=== PATIENT | female | born 1985 | race Caucasian/White ===

== ENCOUNTER 2017-10-31 06:40 | Emergency (ER) | payer SELFPAY ==
[~2017-10-31] VITALS: Ht 160 cm; Wt 59.0 kg
[~2017-10-31 06:40] MED LIST: AMOX250 PO; ANTIANXIETY MED; ATEN25; ATEN25 PO; Advil200 M1 PO; Atenolol25 MG PO; Augmentin 875-1 EACH PO; BCP; BENADRYL25 MG PO; BIRTH CONTROL; BIRTH CONTROL PO; Bactrim Ds Tab1 EACH PO; Bactroban22 GM TOP; CIPR500 PO; CODGUAEL PO; CYCL10 PO; DULO30 PO; DULOXETINE HCL60 MG PO; FOLI1 PO; GABA300 PO; HYDACE5 PO; IBUP600 PO; LORA2 PO; Micro-K10 MEQ; NAPR500 PO; Naprosyn375 MG PO; Neurontin 100100 MG PO; Neurontin 300300 MG PO; Norco 5-325 Ta1 EACH PO; PROACE100 PO; PROM25 PO; PROP40; Percocet 5-3251 EACH PO; QUET300; RANI150 PO; RXCYCL10 PO; RXHYDACE PO; RXOXYACE PO; RXPROM25 PO; RXTRAM50 PO; SERT100; SERT50 PO; SYMBALTA; TRAM50 PO; Ultram50 MG PO; VARE1 PO
== END 2017-10-31 09:45 | disposition home or self-care (01) ==
LOC: ER 06:40
DX: T74.21XA Adult sexual abuse, confirmed, initial encounter (principal); Z88.1 Allergy status to other antibiotic agents; Z88.8 Allergy status to other drugs, medicaments and biological substances; Z79.899 Other long term (current) drug therapy; F17.200 Nicotine dependence, unspecified, uncomplicated
CPT/HCPCS: J0696

== ENCOUNTER 2018-07-23 23:51 | Emergency (ER) | payer SELFPAY ==
[~2018-07-23] VITALS: Ht 160 cm; Wt 56.7 kg
[~2018-07-23 23:51] MED LIST changes: +Cyclobenzaprine5 MG PO
[2018-07-24] MEDS ORDERED: Bactrim Ds Tab1 EACH PO (01:37)
== END 2018-07-24 01:54 | disposition home or self-care (01) ==
LOC: ER 23:51
DX: L01.00 Impetigo, unspecified (principal); L03.011 Cellulitis of right finger; Z88.1 Allergy status to other antibiotic agents; Z88.8 Allergy status to other drugs, medicaments and biological substances; Z79.899 Other long term (current) drug therapy; F17.200 Nicotine dependence, unspecified, uncomplicated
CPT/HCPCS: 99283

== ENCOUNTER 2018-11-29 04:43 | Emergency (ER) | payer OTHER ==
[~2018-11-29] VITALS: Ht 160 cm; Wt 68.0 kg
[2018-11-29 05:29] LABS: BASOPHILS ABSOLUTE AUTO 0.03 K/mm3 (0.00-0.23); BASOPHILS PERCENT AUTO 0 % (0-2); EOSINOPHILS ABSOLUTE AUTO 0.06 K/mm3 (0.00-0.68); EOSINOPHILS PERCENT AUTO 1 % (0-6); Hematocrit 33.4 % (33.0-51.0); Hemoglobin 11.1 g/dL (11.5-16.0); IMMATURE GRAN ABSOLUTE AUTO 0.05 K/mm3 (0.00-0.10); IMMATURE GRAN PERCENT AUTO 1 % (0-1); LYMPHOCYTES ABSOLUTE AUTO 2.24 K/mm3 (0.84-5.20); LYMPHOCYTES PERCENT AUTO 30 % (21-46); MONOCYTES ABSOLUTE AUTO 0.46 K/mm3 (0.16-1.47); MONOCYTES PERCENT AUTO 6 % (4-13); Mean Corpuscular HGB 30.5 pg (26.0-34.0); Mean Corpuscular HGB Conc 33.2 g/dL (31.5-36.5); Mean Corpuscular Volume 92 fL (80-100); Mean Platelet Volume 9.6 fL (9.1-12.4); NEUTROPHILS ABSOLUTE AUTO 4.67 K/mm3 (1.96-9.15); NEUTROPHILS PERCENT AUTO 62 % (41-73); Platelet Count 321 K/mm3 (150-400); RDW Standard Deviation 43.5 fL (35.1-46.3); Red Blood Cell Count 3.64 M/mm3 (3.80-5.20); White Blood Cell Count 7.51 K/mm3 (4.00-11.30)
[2018-11-29] MEDS ORDERED: Verotin-Gr Cap1 EACH PO (05:35)
[2018-11-29 05:51] LABS: Alanine Aminotransfer (ALT/SGP 17 U/L (12-78); Albumin, Blood 2.8 g/dL (3.4-5.0); Albumin/Globulin Ratio 0.7 (0.8-1.8); Alk Phos 76 U/L (50-136); Anion Gap 5 mmol/L (6-16); Aspartate Aminotrans (AST/SGOT 8 U/L (12-37); Bilirubin, Total 0.2 mg/dL (0.1-1.0); Blood Urea Nitrogen 10 mg/dL (8-24); Bun/Creatinine Ratio 18.9 (12.0-20.0); CO2, Blood 26 mmol/L (21-32); Calcium, Blood 8.4 mg/dL (8.5-10.1); Chloride, Blood 109 mmol/L (98-108); Creatinine, Blood 0.53 mg/dL (0.40-1.00); Globulin, Blood 3.8 g/dL (2.2-4.0); Glomerular Filtration Rate >60 (60-); Glucose, Blood 87 mg/dL (70-99); Potassium, Blood 3.3 mmol/L (3.5-5.5); Sodium, Blood 140 mmol/L (136-145); Total Protein, Blood 6.6 g/dL (6.4-8.2)
[2018-11-29 06:16] LABS: Source, Urine Clean Catch
[2018-11-29 06:18] LABS: Bilirubin, Urine Neg (Neg); Blood, Urine Neg (Neg); Glucose Qualitative, Urine Neg (Neg); Ketones, Urine Neg (Neg); Leukocyte Esterase, Urine Neg (Neg); Nitrite, Urine Neg (Neg); Protein, Urine Neg (Neg); Specific Gravity, Urine 1.025 (1.003-1.022); Urobilinogen, Urine NORM (Normal)
[2018-11-29 06:19] LABS: Appearance, Urine Clear (Clear); Color, Urine Yellow (P-Yellow)
== END 2018-11-29 08:23 | disposition home or self-care (01) ==
LOC: ER 04:43
PROVIDERS: Emergency Medicine
DX: O26.892 Other specified pregnancy related conditions, second trimester (principal); R10.30 Lower abdominal pain, unspecified; R10.813 Right lower quadrant abdominal tenderness; O99.332 Smoking (tobacco) complicating pregnancy, second trimester; F17.210 Nicotine dependence, cigarettes, uncomplicated; Z3A.22 22 weeks gestation of pregnancy; Z88.1 Allergy status to other antibiotic agents
CPT/HCPCS: 36415; 76815; 76857; 80053; 81003; 85025; 96360; 99284-25; J7030

== ENCOUNTER → 2019-03-18 | Outpatient (CLI) | payer OTHER ==
[~2019-03-18] MED LIST changes: +Percocet 5-3251 EACH; +Verotin-Gr Cap1 EACH PO
== END | disposition home or self-care (01) ==
LOC: LAB EV 17:30 → LAB SHORT 17:30
DX: L02.31 Cutaneous abscess of buttock (principal)
CPT/HCPCS: 87070; 87075; 87077; 87147; 87186; 87205

== ENCOUNTER 2019-03-29 15:00 | Emergency (ER) | payer OTHER ==
[~2019-03-29 15:00] MED LIST changes: -Percocet 5-3251 EACH
== END 2019-03-29 15:30 | disposition left against medical advice (07) ==
LOC: ER 15:00
DX: Z53.21 Procedure and treatment not carried out due to patient leaving prior to being seen by health care provider (principal)

== ENCOUNTER 2019-03-29 15:38 | Inpatient (IN) | payer OTHER ==
[~2019-03-29] VITALS: Ht 160 cm; Wt 77.3 kg
[2019-03-29 16:52] LABS: BASOPHILS ABSOLUTE AUTO 0.03 K/mm3 (0.00-0.23); BASOPHILS PERCENT AUTO 0 % (0-2); EOSINOPHILS ABSOLUTE AUTO 0.04 K/mm3 (0.00-0.68); EOSINOPHILS PERCENT AUTO 1 % (0-6); Hematocrit 30.9 % (33.0-51.0); Hemoglobin 9.6 g/dL (11.5-16.0); IMMATURE GRAN ABSOLUTE AUTO 0.04 K/mm3 (0.00-0.10); IMMATURE GRAN PERCENT AUTO 1 % (0-1); LYMPHOCYTES ABSOLUTE AUTO 1.92 K/mm3 (0.84-5.20); LYMPHOCYTES PERCENT AUTO 26 % (21-46); MONOCYTES ABSOLUTE AUTO 0.51 K/mm3 (0.16-1.47); MONOCYTES PERCENT AUTO 7 % (4-13); Mean Corpuscular HGB 28.3 pg (26.0-34.0); Mean Corpuscular HGB Conc 31.1 g/dL (31.5-36.5); Mean Corpuscular Volume 91 fL (80-100); Mean Platelet Volume 10.2 fL (9.1-12.4); NEUTROPHILS ABSOLUTE AUTO 4.82 K/mm3 (1.96-9.15); NEUTROPHILS PERCENT AUTO 66 % (41-73); Platelet Count 351 K/mm3 (150-400); RDW Coefficient Variation 12.8 % (11.7-14.2); RDW Standard Deviation 42.3 fL (35.1-46.3); Red Blood Cell Count 3.39 M/mm3 (3.80-5.20); White Blood Cell Count 7.36 K/mm3 (4.00-11.30)
[2019-03-29 17:11] LABS: Alanine Aminotransfer (ALT/SGP 14 U/L (12-78); Albumin, Blood 2.3 g/dL (3.4-5.0); Albumin/Globulin Ratio 0.6 (0.8-1.8); Alk Phos 190 U/L (50-136); Anion Gap 5 mmol/L (6-16); Aspartate Aminotrans (AST/SGOT 13 U/L (12-37); Bilirubin, Total 0.2 mg/dL (0.1-1.0); Blood Urea Nitrogen 10 mg/dL (8-24); CO2, Blood 26 mmol/L (21-32); Calcium, Blood 8.7 mg/dL (8.5-10.1); Chloride, Blood 106 mmol/L (98-108); Creatinine, Blood 0.56 mg/dL (0.40-1.00); Globulin, Blood 4.1 g/dL (2.2-4.0); Glomerular Filtration Rate >60 (60-); Glucose, Blood 96 mg/dL (70-99); Potassium, Blood 3.4 mmol/L (3.5-5.5); Sodium, Blood 137 mmol/L (136-145); Total Protein, Blood 6.4 g/dL (6.4-8.2)
--- NOTE | 2019-03-30 00:39 | NUR ---
0020 pt returns from being outside, with food from vendor. informed pt she could not eat. She states she is going to eat since she is used to eating every 2 hours and waiting 6 or more hours she could not do.
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
--- NOTE | 2019-03-30 08:35 | NUR ---
talked to dr shanks at 08, telephone order for BPP stat, pt is wanting to eat and it is hard to keep food away. her mom is at the bedside and dr shanks was updated on that. dr shanks reports depending on BPP will decide the decision on if pt may eat or not.
--- NOTE | 2019-03-30 10:54 | NUR ---
PT IS WITHDRAWN, DOESNT WANT A C/S, BUT WANTS WHAT IS BEST FOR BABY AND WILLING TO HAVE ONE, WAS CRYING AND TEARUL AFTER FINDING OUT HAVING TO HAVE C/S. NOW PT IS WITHDRAWN AND TEARFUL. LEGAL GUARDIAN IS AT BEDSIDE, UNSURE HOW HAS GUARDIAN SHIP OF BABY WHEN BABY IS BABY IS BORN. PT ISNT ABLE TO BE A LEGAL GUARDIAN TO HERSELF, NOT SURE IF HER LEGAL GUARDIAN WILL HAVE DECISION MAKING OVER BABY OR IF PT IS ABLE TO HAVE LEGAL DECISION OVER BABY, NURSE KILN DOOR REPAIRER IS LOOKING INTO THIS PROBLEM. THERE IS A CPS LETTER IN CHART AND THE PAPER WORK ON LEGAL GUARDIANSHIP IS IN CHART, THE LEGAL GUARDIAN HAS CO SIGNED ALL CONSENTS FOR MOM.
[2019-03-30 12:38] LABS: PCO2 Cord - Arterial 62.6 mmHg (40-50); pH Cord - Arterial 7.26 (7.28-7.35)
[2019-03-30 12:39] LABS: PCO2 Cord - Venous 47.3 mmHg (40-50); PO2 Cord - Venous 20.2 mmHg (28-32); pH Umbilical Cord - Venous 7.36 (7.26-7.35)
--- NOTE | 2019-03-30 12:39 | NUR ---
03/30/19 1239 Merry Cordoba VIABLE FEMALE BORN VIA AT 1221, 9/9, WEIGHT [id number], 6# 3 OZ. CORD GASSES SENT WITH EDGARDO JOAQUIN. CORD BLOOD GIVEN TO ACC, CORD SEGMENT COLLECTED AND GIVEN TO AVIONICS MANAGERLUISA RN. PT TO PACU, MYSELF TO DO RECOVERY.
--- NOTE | 2019-03-30 13:39 | NUR ---
DR SALAS AT BEDSIDE UPDATE ON NB, MEDICATED WITH FENTANYL 25MCG IVP,
--- NOTE | 2019-03-30 15:02 | NUR ---
PT COUGHING ALOT, DRESSING SATURATED, PRESSURE DRESSING APPLIED WITH LUIS CARLOS REYES. FF @U, SCANT BLEEDING.
--- NOTE | 2019-03-30 16:33 | NUR ---
REPORT TO AMYRN
--- NOTE | 2019-03-30 20:00 | NUR ---
PT UP TO WHEELCHAIR, TOLLERATED WELL. TO NURSERY TO VISIT NB. APPROPRIATE WITH NB, FEEDING AND HOLDING.
[2019-03-31 06:00] LABS: BASOPHILS ABSOLUTE AUTO 0.02 K/mm3 (0.00-0.23); BASOPHILS PERCENT AUTO 0 % (0-2); EOSINOPHILS ABSOLUTE AUTO 0.06 K/mm3 (0.00-0.68); EOSINOPHILS PERCENT AUTO 1 % (0-6); Hematocrit 28.6 % (33.0-51.0); Hemoglobin 9.1 g/dL (11.5-16.0); IMMATURE GRAN ABSOLUTE AUTO 0.04 K/mm3 (0.00-0.10); IMMATURE GRAN PERCENT AUTO 1 % (0-1); LYMPHOCYTES ABSOLUTE AUTO 1.64 K/mm3 (0.84-5.20); LYMPHOCYTES PERCENT AUTO 21 % (21-46); MONOCYTES ABSOLUTE AUTO 0.48 K/mm3 (0.16-1.47); MONOCYTES PERCENT AUTO 6 % (4-13); Mean Corpuscular HGB 28.6 pg (26.0-34.0); Mean Corpuscular HGB Conc 31.8 g/dL (31.5-36.5); Mean Corpuscular Volume 90 fL (80-100); Mean Platelet Volume 9.9 fL (9.1-12.4); NEUTROPHILS ABSOLUTE AUTO 5.53 K/mm3 (1.96-9.15); NEUTROPHILS PERCENT AUTO 71 % (41-73); Platelet Count 295 K/mm3 (150-400); RDW Coefficient Variation 12.8 % (11.7-14.2); RDW Standard Deviation 42.2 fL (35.1-46.3); Red Blood Cell Count 3.18 M/mm3 (3.80-5.20); White Blood Cell Count 7.77 K/mm3 (4.00-11.30)
--- NOTE | 2019-03-31 10:30 | NUR ---
PT TO NURSERY TO FEED NB
--- NOTE | 2019-03-31 14:53 | NUR ---
TO NURSERY TO SEE NB. PT CRYING ABOUT LOSING BABY. CALL TO [facility] TO SEE IF PT CAN COME BACK, PT REPORTS SHE HAS BEEN LIVING THERE. AWAITING RESPONSE. NIDHI, PT GUARDIAN, AND PT MOTHER AT HER SIDE. THEY STATE THEY WILL NOT TAKE HER HOME.
--- NOTE | 2019-03-31 18:02 | NUR ---
HIV TEST WAS NOT ORDERED WITH LABS ON ADMIT. PER DR PRECIADO ( NEEDED FOR BABY), HIV TEST WAS ORDERED. AFTER MUCH DISCUSSION, THE LAB STATED THAT THEY WILL DO A RAPID DRAW THIS ONE TIME AND DR CANNON IS OK TO LET BABY GO. IF RESULTS COME BACK POSITIVE, THEN BABY WILL NEED TO COME BACK FOR TX. ORDER WRITTEN ON PAPER ORDER FOR RAPID HIV PER THE LAB IT IS NOT IN THE COMPUTER OTHERWISE.
--- NOTE | 2019-03-31 18:05 | NUR ---
PT BP HAS BEEN RUNNING 130'S/90'S TO 140'S-100'S AFTER PT HAS GONE OUTSIDE TO SMOKE. DR PRECIADO WAS UPDATED.
--- NOTE | 2019-03-31 18:55 | NUR ---
REPORT TO ONCOMING SHIFT
--- NOTE | 2019-04-01 12:41 | NUR ---
PATIENT REQUESTS TO SLEEP
[2019-04-01] MEDS ORDERED: IBUP600 PO (14:21)
[2019-04-01] MEDS ORDERED: Percocet 5-3251 EACH (14:22)
== END 2019-04-01 16:15 | disposition home or self-care (01) | DRG 787 ==
LOC: BC 15:38 → OBS 15:38 → BC 15:39 → OBS 15:39 → EDSTATUS 16:15 → BC 18:08
PROVIDERS: Obstetrics & Gynecology; ADMIT Advanced Practice Midwife
PROC: 10D00Z1 Extraction of Products of Conception, Low, Open Approach (ICD-10-PCS; principal; 2019-03-30 11:30)
DX: O36.5930 Maternal care for other known or suspected poor fetal growth, third trimester, not applicable or unspecified (principal); O99.324 Drug use complicating childbirth; Z3A.34 34 weeks gestation of pregnancy; Z37.0 Single live birth; O34.211 Maternal care for low transverse scar from previous cesarean delivery; F19.90 Other psychoactive substance use, unspecified, uncomplicated; O75.89 Other specified complications of labor and delivery
CPT/HCPCS: 36415; 59025; 76805; 76819; 80053; 82803; 85025; 86317; 86592; 86703; 86762; 86850; 86900; 86901; 99214; G0378; J0690; J2370; J2590; J2765; J3010; J7120

== ENCOUNTER 2019-06-20 05:43 | Emergency (ER) | payer OTHER ==
[~2019-06-20] VITALS: Ht 160 cm; Wt 63.5 kg
[~2019-06-20 05:43] MED LIST changes: +Percocet 5-3251 EACH
[2019-06-20 06:35] LABS: BASOPHILS ABSOLUTE AUTO 0.01 K/mm3 (0.00-0.23); BASOPHILS PERCENT AUTO 0 % (0-2); EOSINOPHILS ABSOLUTE AUTO 0.03 K/mm3 (0.00-0.68); EOSINOPHILS PERCENT AUTO 1 % (0-6); Hematocrit 41.6 % (33.0-51.0); Hemoglobin 13.1 g/dL (11.5-16.0); IMMATURE GRAN ABSOLUTE AUTO 0.02 K/mm3 (0.00-0.10); IMMATURE GRAN PERCENT AUTO 0 % (0-1); LYMPHOCYTES PERCENT AUTO 7 % (21-46); MONOCYTES PERCENT AUTO 3 % (4-13); Mean Corpuscular HGB 27.1 pg (26.0-34.0); Mean Corpuscular HGB Conc 31.5 g/dL (31.5-36.5); Mean Corpuscular Volume 86 fL (80-100); Mean Platelet Volume 9.9 fL (9.1-12.4); NEUTROPHILS ABSOLUTE AUTO 5.53 K/mm3 (1.96-9.15); NEUTROPHILS PERCENT AUTO 89 % (41-73); Platelet Count 261 K/mm3 (150-400); RDW Coefficient Variation 13.2 % (11.7-14.2); RDW Standard Deviation 41.4 fL (35.1-46.3); Red Blood Cell Count 4.83 M/mm3 (3.80-5.20); White Blood Cell Count 6.19 K/mm3 (4.00-11.30)
[2019-06-20 06:47] LABS: Alanine Aminotransfer (ALT/SGP 29 U/L (12-78); Albumin, Blood 3.3 g/dL (3.4-5.0); Albumin/Globulin Ratio 0.9 (0.8-1.8); Alk Phos 115 U/L (50-136); Anion Gap 6 mmol/L (6-16); Aspartate Aminotrans (AST/SGOT 19 U/L (12-37); Bilirubin, Total 0.5 mg/dL (0.1-1.0); Blood Urea Nitrogen 18 mg/dL (8-24); Bun/Creatinine Ratio 35.4 (12.0-20.0); CO2, Blood 24 mmol/L (21-32); Calcium, Blood 8.5 mg/dL (8.5-10.1); Chloride, Blood 109 mmol/L (98-108); Creatinine, Blood 0.51 mg/dL (0.40-1.00); Globulin, Blood 3.8 g/dL (2.2-4.0); Glomerular Filtration Rate >60 (60-); Glucose, Blood 114 mg/dL (70-99); Potassium, Blood 3.9 mmol/L (3.5-5.5); Sodium, Blood 139 mmol/L (136-145); Total Protein, Blood 7.1 g/dL (6.4-8.2)
== END 2019-06-20 10:38 | disposition home or self-care (01) ==
LOC: ER 05:43
PROVIDERS: Emergency Medicine
DX: R10.9 Unspecified abdominal pain (principal); F17.210 Nicotine dependence, cigarettes, uncomplicated
CPT/HCPCS: 36415; 80053; 83690; 85025; 96361; 96374; 96375; 99284-25; C9113; J2405; J3010; J7120

== ENCOUNTER 2020-01-15 00:39 | Emergency (ER) | payer OTHER ==
[~2020-01-15] VITALS: Ht 160 cm; Wt 68.0 kg
[2020-01-15 00:57] LABS: BASOPHILS ABSOLUTE AUTO 0.03 K/mm3 (0.00-0.23); BASOPHILS PERCENT AUTO 0 % (0-2); EOSINOPHILS ABSOLUTE AUTO 0.05 K/mm3 (0.00-0.68); EOSINOPHILS PERCENT AUTO 1 % (0-6); Hematocrit 42.8 % (33.0-51.0); Hemoglobin 13.5 g/dL (11.5-16.0); IMMATURE GRAN ABSOLUTE AUTO 0.02 K/mm3 (0.00-0.10); IMMATURE GRAN PERCENT AUTO 0 % (0-1); LYMPHOCYTES PERCENT AUTO 27 % (21-46); MONOCYTES ABSOLUTE AUTO 0.62 K/mm3 (0.16-1.47); MONOCYTES PERCENT AUTO 8 % (4-13); Mean Corpuscular HGB 28.2 pg (26.0-34.0); Mean Corpuscular HGB Conc 31.5 g/dL (31.5-36.5); Mean Corpuscular Volume 90 fL (80-100); Mean Platelet Volume 9.8 fL (9.1-12.4); NEUTROPHILS PERCENT AUTO 64 % (41-73); Platelet Count 304 K/mm3 (150-400); RDW Coefficient Variation 12.5 % (11.7-14.2); RDW Standard Deviation 41.1 fL (35.1-46.3); Red Blood Cell Count 4.78 M/mm3 (3.80-5.20); White Blood Cell Count 8.12 K/mm3 (4.00-11.30)
[2020-01-15 01:18] LABS: Alanine Aminotransfer (ALT/SGP 18 U/L (12-78); Albumin, Blood 3.9 g/dL (3.4-5.0); Alk Phos 100 U/L (50-136); Anion Gap 6 mmol/L (6-16); Aspartate Aminotrans (AST/SGOT 17 U/L (12-37); Beta HCG, Quantitative, Serum <1 mIU/mL (0-3); Bilirubin, Total 0.4 mg/dL (0.1-1.0); Blood Urea Nitrogen 19 mg/dL (8-24); Bun/Creatinine Ratio 24.1 (12.0-20.0); CO2, Blood 24 mmol/L (21-32); Chloride, Blood 111 mmol/L (98-108); Creatinine, Blood 0.79 mg/dL (0.40-1.00); Ethanol (Alcohol), Blood, Med <3 mg/dL; Globulin, Blood 4.1 g/dL (2.2-4.0); Glomerular Filtration Rate >60 (60-); Glucose, Blood 102 mg/dL (70-99); Sodium, Blood 141 mmol/L (136-145)
[2020-01-15] MEDS ORDERED: OXYC5 PO (04:52)
== END 2020-01-15 05:34 | disposition home or self-care (01) ==
LOC: ER 00:39
PROVIDERS: Emergency Medicine
DX: S06.0X9A Concussion with loss of consciousness of unspecified duration, initial encounter (principal); S01.82XA Laceration with foreign body of other part of head, initial encounter; S29.012A Strain of muscle and tendon of back wall of thorax, initial encounter; S39.012A Strain of muscle, fascia and tendon of lower back, initial encounter; F17.210 Nicotine dependence, cigarettes, uncomplicated; Z88.1 Allergy status to other antibiotic agents; Z88.8 Allergy status to other drugs, medicaments and biological substances; V19.9XXA Pedal cyclist (driver) (passenger) injured in unspecified traffic accident, initial encounter
CPT/HCPCS: 12052; 70450; 72070; 72100; 72125; 72126; 80053; 84702; 85025; 96374-59; 96375-59; 99285-25; A9270; A9270-GY; G0480; J1170; J2405; J2550; J3010

== ENCOUNTER 2020-02-22 06:02 | Emergency (ER) | payer OTHER ==
[~2020-02-22] VITALS: Ht 160 cm; Wt 56.7 kg
[~2020-02-22 06:02] MED LIST changes: +OXYC5 PO
[2020-02-22 07:03] LABS: BASOPHILS ABSOLUTE AUTO 0.03 K/mm3 (0.00-0.23); BASOPHILS PERCENT AUTO 1 % (0-2); EOSINOPHILS ABSOLUTE AUTO 0.08 K/mm3 (0.00-0.68); EOSINOPHILS PERCENT AUTO 1 % (0-6); Hematocrit 42.2 % (33.0-51.0); Hemoglobin 13.6 g/dL (11.5-16.0); IMMATURE GRAN ABSOLUTE AUTO 0.01 K/mm3 (0.00-0.10); IMMATURE GRAN PERCENT AUTO 0 % (0-1); LYMPHOCYTES ABSOLUTE AUTO 2.15 K/mm3 (0.84-5.20); LYMPHOCYTES PERCENT AUTO 33 % (21-46); MONOCYTES ABSOLUTE AUTO 0.53 K/mm3 (0.16-1.47); MONOCYTES PERCENT AUTO 8 % (4-13); Mean Corpuscular HGB 29.4 pg (26.0-34.0); Mean Corpuscular HGB Conc 32.2 g/dL (31.5-36.5); Mean Corpuscular Volume 91 fL (80-100); Mean Platelet Volume 10.1 fL (9.1-12.4); NEUTROPHILS PERCENT AUTO 57 % (41-73); Platelet Count 308 K/mm3 (150-400); RDW Coefficient Variation 13.1 % (11.7-14.2); RDW Standard Deviation 43.7 fL (35.1-46.3); Red Blood Cell Count 4.63 M/mm3 (3.80-5.20)
[2020-02-22 07:22] LABS: Alanine Aminotransfer (ALT/SGP 24 U/L (12-78); Albumin, Blood 3.5 g/dL (3.4-5.0); Albumin/Globulin Ratio 0.8 (0.8-1.8); Alk Phos 106 U/L (50-136); Anion Gap 5 mmol/L (6-16); Aspartate Aminotrans (AST/SGOT 20 U/L (12-37); Bilirubin, Total 0.5 mg/dL (0.1-1.0); Blood Urea Nitrogen 19 mg/dL (8-24); Bun/Creatinine Ratio 25.1 (12.0-20.0); CO2, Blood 26 mmol/L (21-32); Calcium, Blood 8.7 mg/dL (8.5-10.1); Chloride, Blood 109 mmol/L (98-108); Creatinine, Blood 0.76 mg/dL (0.40-1.00); Globulin, Blood 4.2 g/dL (2.2-4.0); Glomerular Filtration Rate >60 (60-); Glucose, Blood 91 mg/dL (70-99); Potassium, Blood 3.8 mmol/L (3.5-5.5); Sodium, Blood 140 mmol/L (136-145); Total Protein, Blood 7.7 g/dL (6.4-8.2)
== END 2020-02-22 09:43 | disposition home or self-care (01) ==
LOC: ER 06:02
PROVIDERS: Emergency Medicine
DX: S09.90XA Unspecified injury of head, initial encounter (principal); F17.210 Nicotine dependence, cigarettes, uncomplicated; Z88.1 Allergy status to other antibiotic agents; Z88.6 Allergy status to analgesic agent; Z59.0 Homelessness; Y09 Assault by unspecified means
CPT/HCPCS: 36415; 70450; 70486; 80053; 84703; 85025; 99284-25

== ENCOUNTER → 2020-04-12 | Outpatient (CLI) | payer OTHER | END | disposition home or self-care (01) | LOC: LAB SHORT 17:25 | DX: N39.0 Urinary tract infection, site not specified (principal) | CPT/HCPCS: 87077; 87086; 87186 ==

== ENCOUNTER 2020-04-17 14:16 | Emergency (ER) | payer OTHER ==
[~2020-04-17] VITALS: Ht 160 cm; Wt 70.3 kg
[2020-04-17] MEDS ORDERED: Percocet 5-3251 EACH PO (15:57)
[2020-04-17] MEDS ORDERED: CRUTCH2 XX (16:51)
== END 2020-04-17 17:03 | disposition home or self-care (01) ==
LOC: ER 14:16
DX: S82.201A Unspecified fracture of shaft of right tibia, initial encounter for closed fracture (principal); J40 Bronchitis, not specified as acute or chronic; F17.210 Nicotine dependence, cigarettes, uncomplicated; Z88.1 Allergy status to other antibiotic agents; Z88.6 Allergy status to analgesic agent; W01.0XXA Fall on same level from slipping, tripping and stumbling without subsequent striking against object, initial encounter
CPT/HCPCS: 29515; 73590; 99283-25; A9270

== ENCOUNTER 2020-05-11 15:28 | Emergency (ER) | payer OTHER ==
[~2020-05-11] VITALS: Ht 160 cm; Wt 68.0 kg
[~2020-05-11 15:28] MED LIST changes: +CRUTCH2 XX
[2020-05-11] MEDS ORDERED: IBUP400 PO (17:09)
== END 2020-05-11 17:50 | disposition home or self-care (01) ==
LOC: ER 15:28
DX: M79.672 Pain in left foot (principal); F15.10 Other stimulant abuse, uncomplicated; F17.210 Nicotine dependence, cigarettes, uncomplicated; Z88.1 Allergy status to other antibiotic agents; Z88.6 Allergy status to analgesic agent
CPT/HCPCS: 73630; 99283-25; A9270

== ENCOUNTER 2022-05-12 05:20 | Emergency (ER) | payer OTHER ==
[~2022-05-12 05:20] MED LIST changes: +AMOCLA875 PO; +IBUP400 PO; +NARCAN4 M1
[2022-05-12] MEDS ORDERED: CEPH500 PO (06:44)
== END 2022-05-12 08:51 | disposition home or self-care (01) ==
DX: O99.891 Other specified diseases and conditions complicating pregnancy (principal); S60.822A Blister (nonthermal) of left wrist, initial encounter; O99.333 Smoking (tobacco) complicating pregnancy, third trimester; Z3A.00 Weeks of gestation of pregnancy not specified; Z88.1 Allergy status to other antibiotic agents; Z88.8 Allergy status to other drugs, medicaments and biological substances; Z87.820 Personal history of traumatic brain injury

== ENCOUNTER → 2022-05-18 | Outpatient (CLI) | payer OTHER ==
[~2022-05-18] MED LIST changes: +CEPH500 PO
== END | disposition home or self-care (01) ==
LOC: LAB SHORT 14:22 → LAB 14:22
DX: Z34.90 Encounter for supervision of normal pregnancy, unspecified, unspecified trimester (principal)
CPT/HCPCS: 87081; 87150

== ENCOUNTER 2022-06-02 16:36 | Inpatient (IN) | payer OTHER ==
[~2022-06-02] VITALS: Ht 154.9 cm; Wt 81.2 kg
[2022-06-02 17:20] LABS: BASOPHILS ABSOLUTE AUTO 0.02 K/mm3 (0.00-0.23); BASOPHILS PERCENT AUTO 0 % (0-2); EOSINOPHILS ABSOLUTE AUTO 0.03 K/mm3 (0.00-0.68); EOSINOPHILS PERCENT AUTO 0 % (0-6); Hematocrit 31.9 % (33.0-51.0); Hemoglobin 10.4 g/dL (11.5-16.0); IMMATURE GRAN ABSOLUTE AUTO 0.05 K/mm3 (0.00-0.10); IMMATURE GRAN PERCENT AUTO 1 % (0-1); LYMPHOCYTES ABSOLUTE AUTO 1.29 K/mm3 (0.84-5.20); LYMPHOCYTES PERCENT AUTO 14 % (21-46); MONOCYTES ABSOLUTE AUTO 0.37 K/mm3 (0.16-1.47); MONOCYTES PERCENT AUTO 4 % (4-13); Mean Corpuscular HGB 26.3 pg (26.0-34.0); Mean Corpuscular HGB Conc 32.6 g/dL (31.5-36.5); Mean Corpuscular Volume 81 fL (80-100); Mean Platelet Volume 10.4 fL (9.1-12.4); NEUTROPHILS PERCENT AUTO 81 % (41-73); Platelet Count 387 K/mm3 (150-400); RDW Coefficient Variation 12.7 % (11.7-14.2); RDW Standard Deviation 36.5 fL (35.1-46.3); Red Blood Cell Count 3.95 M/mm3 (3.80-5.20); White Blood Cell Count 9.16 K/mm3 (4.00-11.30)
[2022-06-02 18:09] LABS: U Amphetamine Screen DETECTED; U Barbituate Screen Not Detected; U Benzodiazapine Screen Not Detected; U Buprenorphine Screen Not Detected; U Cannabinoids Screen Not Detected; U Cocaine Screen Not Detected; U Methadone Screen Not Detected; U Methamphetamine Screen DETECTED; U Opiates Screen Not Detected; U Oxycodone Screen Not Detected; U Phencyclidine Screen Not Detected; U Propoxyphene Screen Not Detected
[2022-06-02 18:31] LABS: PCO2 Cord - Arterial 68.2 mmHg (40-50); PO2 Cord - Arterial < 16 mmHg (16-20); pH Cord - Arterial 7.18 (7.28-7.35)
[2022-06-02 18:34] LABS: PCO2 Cord - Venous 61 mmHg (40-50); PO2 Cord - Venous < 16 mmHg (28-32); pH Umbilical Cord - Venous 7.23 (7.26-7.35)
[2022-06-03 10:10] LABS: RPR Reactive (Nonreactive)
[2022-06-03 10:33] LABS: BASOPHILS ABSOLUTE AUTO 0.03 K/mm3 (0.00-0.23); BASOPHILS PERCENT AUTO 0 % (0-2); EOSINOPHILS ABSOLUTE AUTO 0.04 K/mm3 (0.00-0.68); EOSINOPHILS PERCENT AUTO 1 % (0-6); IMMATURE GRAN ABSOLUTE AUTO 0.05 K/mm3 (0.00-0.10); IMMATURE GRAN PERCENT AUTO 1 % (0-1); LYMPHOCYTES ABSOLUTE AUTO 1.39 K/mm3 (0.84-5.20); LYMPHOCYTES PERCENT AUTO 18 % (21-46); MONOCYTES ABSOLUTE AUTO 0.53 K/mm3 (0.16-1.47); MONOCYTES PERCENT AUTO 7 % (4-13); Mean Corpuscular HGB 26.5 pg (26.0-34.0); Mean Corpuscular HGB Conc 32.1 g/dL (31.5-36.5); Mean Corpuscular Volume 83 fL (80-100); Mean Platelet Volume 10.4 fL (9.1-12.4); NEUTROPHILS ABSOLUTE AUTO 5.62 K/mm3 (1.96-9.15); NEUTROPHILS PERCENT AUTO 73 % (41-73); Platelet Count 341 K/mm3 (150-400); Red Blood Cell Count 3.39 M/mm3 (3.80-5.20); White Blood Cell Count 7.66 K/mm3 (4.00-11.30)
[2022-06-03 10:57] LABS: Albumin, Blood 1.8 g/dL (3.4-5.0); Albumin/Globulin Ratio 0.4 (0.8-1.8); Bilirubin, Total 0.4 mg/dL (0.1-1.0); Bun/Creatinine Ratio 11.7 (12.0-20.0); Calcium, Blood 8.5 mg/dL (8.5-10.1); Creatinine, Blood 0.85 mg/dL (0.40-1.00); Globulin, Blood 4.6 g/dL (2.2-4.0); Potassium, Blood 4.3 mmol/L (3.5-5.5); Total Protein, Blood 6.4 g/dL (6.4-8.2)
--- NOTE | 2022-06-03 15:09 | NUR ---
1400 MOTHER UP TO NURSERY FOR THE FIRST TIME TODAY TO SEE BABY. ASSISTED WITH FEED AND THEN BACK TO ROOM.
--- NOTE | 2022-06-03 15:09 | NUR ---
DR BAI AT BEDSIDE TO DISCUSS TRANSFERING BABY TO [facility]. DISCUSSION WITH PATIENT ABOUT REACTIVE RPR. DR RUIZ WILL BE PUTTING IN ORDERS FOR TREATMENT. PT VERY TEARFUL AT THIS TIME.
--- NOTE | 2022-06-03 15:47 | NUR ---
MOTHER CRYING IN NURSERY HOLDING BABY AND SIGNING CONSENTS WITH DR BAI. DR RUIZ CALLED AND MEDICATION ORDER RECEIVED. MOTHER STATES SHE WILL STAY TONIGHT AND GET DISCHARGED TOMORROW. DR RUIZ AWARE.
--- NOTE | 2022-06-03 18:41 | NUR ---
MOTHER STATES SHE NOW WILL NOT STAY UNTIL MORNING AND NEEDS TO GO HOME TONIGHT TO TAKE CARE OF SOME THINGS. EXPLAINED THAT ALL PHARMACYS WILL BE CLOSED WHEN SHE LEAVES AND SHE WONT HAVE ANY OF HER MEDICATIONS TO TAKE. PT STATES SHE WILL JUST HAVE TO DEAL WITH IT BUT DOES HAVE TO LEAVE TONIGHT. CALL TO DR RUIZ. DISCUSSED TRYING TO GET THE PATIENT TO STAY [place]GT BUT IF SHE IS ADAMANT ABOUT LEAVING THEN CAN DC HOME. RX WILL BE CALLED TO PHARMACY BUT WONT BE READY UNTIL TOMORROW. DR RUIZ WANTS PT TO RETURN TO OFFICE NEXT WEEK FOR PEN G AND INCISION CHECK AND TO REMOVE NATASHA.
[2022-06-03] MEDS ORDERED: ACYC400 PO (19:18)
[2022-06-03] MEDS ORDERED: ACET500 PO (19:18)
[2022-06-03] MEDS ORDERED: IBUP800 PO (19:18)
[2022-06-03] MEDS ORDERED: DOXYCYCLINE HY100 M1 PO (19:19)
--- NOTE | 2022-06-03 20:00 | NUR ---
PT DC HOME. PT CALLED MOM TO PICK HER UP. REVIEWED DC INSTRUCTION WITH PT AND HIGHLITED AREA ABOUT CALLING TO SCHEDULE FOLLOW UP WITH PRIMARY OB FOR NEXT WEEK. PT ALSO SCHEDULED TO COME BACK TO CLINIC WEDNESDAY AT 8:30AM. WALKED PATIENT OFF UNIT.
[2022-06-04 06:09] LABS: HBSAG SCREEN Negative (Negative); HCV ANTIBODY 0.1 (0.0-0.9)
[2022-06-04 06:09] LABS: HIV AB/P24 AG SCREEN Non Reactive (Non Reactive)
== END 2022-06-03 19:42 | disposition home or self-care (01) | DRG 787 ==
LOC: BC 16:36 → OBS 16:36 → BC 17:11
PROVIDERS: Registered Nurse Community Health; ADMIT Family Medicine
PROC: 10D00Z1 Extraction of Products of Conception, Low, Open Approach (ICD-10-PCS; principal; 2022-06-02 19:00)
DX: O34.211 Maternal care for low transverse scar from previous cesarean delivery (principal); B00.89 Other herpesviral infection; O98.52 Other viral diseases complicating childbirth; O99.324 Drug use complicating childbirth; F15.20 Other stimulant dependence, uncomplicated; Z37.0 Single live birth; O99.334 Smoking (tobacco) complicating childbirth; F17.210 Nicotine dependence, cigarettes, uncomplicated; F12.10 Cannabis abuse, uncomplicated; Z59.00 Homelessness unspecified; Z87.820 Personal history of traumatic brain injury; Z88.8 Allergy status to other drugs, medicaments and biological substances; Z88.1 Allergy status to other antibiotic agents; Z79.2 Long term (current) use of antibiotics; Z79.899 Other long term (current) drug therapy; Z3A.39 39 weeks gestation of pregnancy
CPT/HCPCS: 36415; 80053; 82803; 85025; 85460; 86592; 86593; 86695; 86696; 86803; 86850; 86900; 86901; 87340; 87389; 87591; A9270; J0561; J0690; J1885; J2060; J2370; J2405; J2765; J3010; J7120

== ENCOUNTER → 2023-12-30 | Outpatient (CLI) | payer OTHER ==
[~2023-12-30] MED LIST changes: +ACET500 PO; +ACYC400 PO; +DOXYCYCLINE HY100 M1 PO; +IBUP800 PO; +ONDA4ODT MM; +UNKNOWN ABX
[2023-12-30 17:05] LABS: BASOPHILS ABSOLUTE AUTO 0.05 K/mm3 (0.00-0.23); BASOPHILS PERCENT AUTO 1 % (0-2); EOSINOPHILS ABSOLUTE AUTO 0.12 K/mm3 (0.00-0.68); EOSINOPHILS PERCENT AUTO 2 % (0-6); Hematocrit 37.4 % (33.0-51.0); Hemoglobin 12.2 g/dL (11.5-16.0); IMMATURE GRAN ABSOLUTE AUTO 0.02 K/mm3 (0.00-0.10); IMMATURE GRAN PERCENT AUTO 0 % (0-1); LYMPHOCYTES ABSOLUTE AUTO 2.82 K/mm3 (0.84-5.20); LYMPHOCYTES PERCENT AUTO 40 % (21-46); MONOCYTES ABSOLUTE AUTO 0.52 K/mm3 (0.16-1.47); MONOCYTES PERCENT AUTO 7 % (4-13); Mean Corpuscular HGB 28.2 pg (26.0-34.0); Mean Corpuscular HGB Conc 32.6 g/dL (31.5-36.5); Mean Corpuscular Volume 86 fL (80-100); Mean Platelet Volume 10.2 fL (9.1-12.4); NEUTROPHILS ABSOLUTE AUTO 3.47 K/mm3 (1.96-9.15); NEUTROPHILS PERCENT AUTO 50 % (41-73); Platelet Count 380 K/mm3 (150-400); RDW Coefficient Variation 12.9 % (11.7-14.2); RDW Standard Deviation 40.4 fL (35.1-46.3); Red Blood Cell Count 4.33 M/mm3 (3.80-5.20)
[2023-12-30 17:25] LABS: Albumin, Blood 3.5 g/dL (3.4-5.0); Albumin/Globulin Ratio 0.8 (0.8-1.8); Bilirubin, Total 0.2 mg/dL (0.1-1.0); Bun/Creatinine Ratio 17.3 (12.0-20.0); Calcium, Blood 9.3 mg/dL (8.5-10.1); Creatinine, Blood 1.04 mg/dL (0.40-1.00); Globulin, Blood 4.5 g/dL (2.2-4.0); Potassium, Blood 3.8 mmol/L (3.5-5.5); Thyroid Stimulating Hormone 1.919 uIU/mL (0.360-4.800)
== END ==
LOC: LAB 17:01 → LAB SHORT 17:01
PROVIDERS: Emergency Medicine
DX: N63.21 Unspecified lump in the left breast, upper outer quadrant (principal); N64.52 Nipple discharge
CPT/HCPCS: 80053; 84146; 84443; 85025

== ENCOUNTER 2024-01-01 18:04 | Emergency (ER) | payer OTHER ==
[~2024-01-01] VITALS: Ht 160 cm; Wt 70.3 kg
[~2024-01-01 18:04] MED LIST changes: -ONDA4ODT MM
[2024-01-01] MEDS ORDERED: Ondansetron HCl 2 MG / ML 2ML Vial IV ONE (18:55)
[2024-01-01] MEDS ORDERED: NS 1,000 ML IV SCH ×2 (18:55→23:20)
[2024-01-01 19:17] LABS: BASOPHILS ABSOLUTE AUTO 0.04 K/mm3 (0.00-0.23); BASOPHILS PERCENT AUTO 1 % (0-2); EOSINOPHILS ABSOLUTE AUTO 0.09 K/mm3 (0.00-0.68); EOSINOPHILS PERCENT AUTO 1 % (0-6); Hematocrit 38.4 % (33.0-51.0); IMMATURE GRAN ABSOLUTE AUTO 0.02 K/mm3 (0.00-0.10); IMMATURE GRAN PERCENT AUTO 0 % (0-1); LYMPHOCYTES ABSOLUTE AUTO 2.73 K/mm3 (0.84-5.20); LYMPHOCYTES PERCENT AUTO 36 % (21-46); MONOCYTES PERCENT AUTO 5 % (4-13); Mean Corpuscular HGB 28.4 pg (26.0-34.0); Mean Corpuscular HGB Conc 33.9 g/dL (31.5-36.5); Mean Corpuscular Volume 84 fL (80-100); Mean Platelet Volume 9.8 fL (9.1-12.4); NEUTROPHILS ABSOLUTE AUTO 4.21 K/mm3 (1.96-9.15); NEUTROPHILS PERCENT AUTO 56 % (41-73); Platelet Count 402 K/mm3 (150-400); RDW Coefficient Variation 12.8 % (11.7-14.2); RDW Standard Deviation 39.3 fL (35.1-46.3); Red Blood Cell Count 4.58 M/mm3 (3.80-5.20); White Blood Cell Count 7.49 K/mm3 (4.00-11.30)
[2024-01-01 19:36] LABS: Albumin, Blood 3.7 g/dL (3.4-5.0); Albumin/Globulin Ratio 0.8 (0.8-1.8); Bilirubin, Total 0.3 mg/dL (0.1-1.0); Bun/Creatinine Ratio 24.8 (12.0-20.0); Calcium, Blood 9.5 mg/dL (8.5-10.1); Creatinine, Blood 0.81 mg/dL (0.40-1.00); Globulin, Blood 4.6 g/dL (2.2-4.0); Potassium, Blood 3.7 mmol/L (3.5-5.5); Total Protein, Blood 8.3 g/dL (6.4-8.2)
[2024-01-01 19:40] LABS: Influenza A, PCR NEGATIVE (NEGATIVE); Influenza B, PCR NEGATIVE (NEGATIVE); Resp Syncytial Virus, PCR NEGATIVE (NEGATIVE); SARS-Cov-2 (COVID-19) PCR, MMC NEGATIVE (NEGATIVE)
[2024-01-01] MEDS ORDERED: Droperidol 5 mg/2 ml Vial IV ONE (23:20)
[2024-01-01] MEDS ORDERED: Ketorolac Tromethamine 15mg Vial IV ONE (23:20)
[2024-01-01 23:57] LABS: Source, Urine Clean Catch
[2024-01-02 00:04] LABS: Bilirubin, Urine Neg (Neg); Blood, Urine Neg (Neg); Glucose Qualitative, Urine Neg (Neg); Ketones, Urine Neg (Neg); Leukocyte Esterase, Urine Neg (Neg); Nitrite, Urine Neg (Neg); Protein, Urine Neg (Neg); Specific Gravity, Urine 1.015 (1.003-1.022); Urobilinogen, Urine NORM (Normal)
[2024-01-02 00:19] LABS: Appearance, Urine Hazy (Clear); Color, Urine Yellow (P-Yellow); U Amphetamine Screen DETECTED; U Barbituate Screen Not Detected; U Benzodiazapine Screen Not Detected; U Buprenorphine Screen Not Detected; U Cannabinoids Screen Not Detected; U Cocaine Screen Not Detected; U Methadone Screen Not Detected; U Methamphetamine Screen DETECTED; U Opiates Screen Not Detected; U Oxycodone Screen Not Detected; U Phencyclidine Screen Not Detected
[2024-01-02 00:20] LABS: Amorphous Heavy (0-Heavy); Bacteria Rare /hpf; Red Blood Cells, Urine Not Seen /hpf (0-2); Squamous Epithelial Cells Few /hpf (Few); White Blood Cells, Urine Not Seen /hpf (0-5)
[2024-01-02] MEDS ORDERED: ONDA4ODT MM (00:36)
[2024-01-02 01:30] VITALS: BP 126/74
== END 2024-01-02 01:53 | disposition home or self-care (01) ==
LOC: ER 18:04
PROVIDERS: Student in an Organized Health Care Education/Training Program
DX: R10.11 Right upper quadrant pain (principal); R10.30 Lower abdominal pain, unspecified; F15.929 Other stimulant use, unspecified with intoxication, unspecified; Z88.8 Allergy status to other drugs, medicaments and biological substances; Z88.1 Allergy status to other antibiotic agents; F17.210 Nicotine dependence, cigarettes, uncomplicated
CPT/HCPCS: 0241U; 76705; 80053; 81001; 81025; 83690; 85025; J1790; J1885; J7030

== ENCOUNTER 2024-01-12 18:29 | Emergency (ER) | payer OTHER ==
[~2024-01-12] VITALS: Ht 160 cm; Wt 72.6 kg
[~2024-01-12 18:29] MED LIST changes: +ONDA4ODT MM
[2024-01-12 18:37] VITALS: BP 123/85
[2024-01-12 19:32] LABS: Source, Urine Clean Catch
[2024-01-12 19:39] LABS: Appearance, Urine Hazy (Clear); Bilirubin, Urine Neg (Neg); Blood, Urine Neg (Neg); Color, Urine Yellow (P-Yellow); Glucose Qualitative, Urine Neg (Neg); Ketones, Urine Neg (Neg); Leukocyte Esterase, Urine 1+ (Neg); Nitrite, Urine Neg (Neg); Protein, Urine Neg (Neg); Specific Gravity, Urine 1.025 (1.003-1.022); Urobilinogen, Urine NORM (Normal)
[2024-01-12] MEDS ORDERED: Ketorolac Tromethamine 15mg Vial IV ONE (19:50)
[2024-01-12 19:52] LABS: Bacteria Many /hpf; Mucus Light (0-Heavy); Red Blood Cells, Urine 0-2 /hpf (0-2); Squamous Epithelial Cells Few /hpf (Few)
== END 2024-01-12 22:15 | disposition home or self-care (01) ==
LOC: ER 18:29
PROVIDERS: Physician Assistant
DX: N83.202 Unspecified ovarian cyst, left side (principal); K52.9 Noninfective gastroenteritis and colitis, unspecified; R10.814 Left lower quadrant abdominal tenderness; F17.210 Nicotine dependence, cigarettes, uncomplicated; Z88.8 Allergy status to other drugs, medicaments and biological substances; Z88.1 Allergy status to other antibiotic agents
CPT/HCPCS: 74177; 81001; 87086; 96374-59; 99284-25; J1885; Q9967

== ENCOUNTER 2024-01-29 23:49 | Inpatient (IN) | payer OTHER ==
[~2024-01-29] VITALS: Ht 160 cm; Wt 68.6 kg
[~2024-01-29 23:49] MED LIST changes: +HYDR1TAB94 PO
[2024-01-30] MEDS ORDERED: HYDROmorphone HCl/Pf 1MG SYR IV ONE (00:10)
[2024-01-30 00:40] LABS: BASOPHILS ABSOLUTE AUTO 0.06 K/mm3 (0.00-0.23); BASOPHILS PERCENT AUTO 1 % (0-2); EOSINOPHILS ABSOLUTE AUTO 0.05 K/mm3 (0.00-0.68); EOSINOPHILS PERCENT AUTO 1 % (0-6); IMMATURE GRAN ABSOLUTE AUTO 0.01 K/mm3 (0.00-0.10); IMMATURE GRAN PERCENT AUTO 0 % (0-1); LYMPHOCYTES ABSOLUTE AUTO 1.84 K/mm3 (0.84-5.20); LYMPHOCYTES PERCENT AUTO 26 % (21-46); MONOCYTES ABSOLUTE AUTO 0.57 K/mm3 (0.16-1.47); MONOCYTES PERCENT AUTO 8 % (4-13); Mean Corpuscular HGB 27.7 pg (26.0-34.0); Mean Corpuscular HGB Conc 32.4 g/dL (31.5-36.5); Mean Corpuscular Volume 86 fL (80-100); Mean Platelet Volume 9.7 fL (9.1-12.4); NEUTROPHILS ABSOLUTE AUTO 4.51 K/mm3 (1.96-9.15); NEUTROPHILS PERCENT AUTO 64 % (41-73); Platelet Count 408 K/mm3 (150-400); RDW Coefficient Variation 12.5 % (11.7-14.2); RDW Standard Deviation 38.7 fL (35.1-46.3); Red Blood Cell Count 4.33 M/mm3 (3.80-5.20); White Blood Cell Count 7.04 K/mm3 (4.00-11.30)
[2024-01-30 01:01] LABS: Albumin, Blood 3.6 g/dL (3.4-5.0); Albumin/Globulin Ratio 0.8 (0.8-1.8); Bilirubin, Total 0.4 mg/dL (0.1-1.0); Calcium, Blood 9.5 mg/dL (8.5-10.1); Creatinine, Blood 0.75 mg/dL (0.40-1.00); Globulin, Blood 4.6 g/dL (2.2-4.0); Total Protein, Blood 8.2 g/dL (6.4-8.2)
[2024-01-30] MEDS ORDERED: Acetaminophen 325 MG TABLET PO PRN (03:55)
[2024-01-30] MEDS ORDERED: HYDROmorphone HCl/Pf 1MG SYR IV PRN ×2 (03:55→10:55)
[2024-01-30] MEDS ORDERED: OxyCODONE HCL 5 MG TAB PO PRN ×3 (03:55→07:55)
[2024-01-30] MEDS ORDERED: Ondansetron 4 MG SoluTab MM PRN (04:00)
[2024-01-30] MEDS ORDERED: Polyethylene Glycol 3350 17 gm PO PRN ×2 (07:55→10:55)
[2024-01-30] MEDS ORDERED: Docusate Sodium/Senna 1 Tab PO PRN (07:55)
[2024-01-30] MEDS ORDERED: Famotidine 20 MG Tab PO SCH (09:00)
[2024-01-30] MEDS ORDERED: Lactobacil 2-S.Thermo-Bifido 1 1 Cap PO SCH (09:00)
[2024-01-30] MEDS ORDERED: Enoxaparin 40 MG/0.4 ML SYR SC SCH (09:00)
[2024-01-30] MEDS ORDERED: OxyCODONE 7.5 mg/Acetam 325 mg TABLET PO SCH (12:00)
[2024-01-30 12:54] VITALS: BP 104/82
[2024-01-30 15:49] VITALS: BP 111/75
--- NOTE | 2024-01-30 17:18 | NUR ---
ADMISSION/SHIFT NOTE: PATIENT ARRIVES TO ROOM AT 1247 VIA GURNEY FROM ER FOR DX'S OF INTRACTABLE ABDOMINAL PAIN. PATIENT TRANSFERRED TO BED c SBA. PATIENT ORIENTATED TO ROOM AND CALL SYSTEM. ADMISSION, MEDRIC AND SKIN ASSESSMENT c 2 RN'S VERIFIED COMPLETED. PATIENT A/OX4, PLEASANT AND COOPERATIVE c CARE. PATIENT USES CALL LIGHT APPROPRIATELY AND ABLE TO MAKE NEEDS KNOWN. PATIENT MEDICATED FOR PAIN TO ABDOMEN c SCHEDULED PAIN MEDS PER EMAR c GOOD EFFECT. PATIENT HAS GOOD APPETITE, CONTINENT OF BLADDER, USES BSC c SBA. SCD'S IN PLACED TO BLE'S. VITAL SIGNS REVIEWED. BEDS ALARM ON FOR SAFETY. CALL LIGHT IN REACH.
[2024-01-30 19:44] VITALS: BP 106/72
[2024-01-30] MEDS ORDERED: Docusate Sodium/Senna 1 Tab PO SCH (21:00)
--- NOTE | 2024-01-31 02:41 | NUR ---
SHIFT SUMMARY NOC PT A/O X 4. PLEASANT AND COOPERATIVE WITH CARE. VSS. PT PAIN DUE TO BREAST CANCER WITH CESIA T/O AND COMPRESSION FX BEING MANAGED PER EMAR. PT HAS SLEPT MAJORITY OF SHIFT ONLY CALLING FOR SNACKS OF PAIN RX. PT USING BSC DUE TO SEVERE ABD PAIN WHEN AMBULATING. HAS BEEN CONTINENT DURING SHIFT. PT HAS NOT HAD ANY C/O OF SOB AFTER RECEIVING IV DILAUDID FOR PAIN. PT CURRENTLY RESTING WITH BED IN LOWEST POSITION, AND CALL LIGHT WITHIN REACH.
[2024-01-31 02:47] VITALS: BP 106/78
[2024-01-31 05:24] LABS: BASOPHILS ABSOLUTE AUTO 0.03 K/mm3 (0.00-0.23); BASOPHILS PERCENT AUTO 1 % (0-2); EOSINOPHILS ABSOLUTE AUTO 0.02 K/mm3 (0.00-0.68); EOSINOPHILS PERCENT AUTO 0 % (0-6); Hematocrit 36.7 % (33.0-51.0); Hemoglobin 11.9 g/dL (11.5-16.0); IMMATURE GRAN ABSOLUTE AUTO 0.02 K/mm3 (0.00-0.10); IMMATURE GRAN PERCENT AUTO 0 % (0-1); LYMPHOCYTES ABSOLUTE AUTO 0.94 K/mm3 (0.84-5.20); LYMPHOCYTES PERCENT AUTO 20 % (21-46); MONOCYTES ABSOLUTE AUTO 0.34 K/mm3 (0.16-1.47); MONOCYTES PERCENT AUTO 7 % (4-13); Mean Corpuscular HGB 27.5 pg (26.0-34.0); Mean Corpuscular HGB Conc 32.4 g/dL (31.5-36.5); Mean Corpuscular Volume 85 fL (80-100); Mean Platelet Volume 9.9 fL (9.1-12.4); NEUTROPHILS ABSOLUTE AUTO 3.43 K/mm3 (1.96-9.15); NEUTROPHILS PERCENT AUTO 72 % (41-73); Platelet Count 339 K/mm3 (150-400); RDW Coefficient Variation 12.6 % (11.7-14.2); RDW Standard Deviation 38.7 fL (35.1-46.3); Red Blood Cell Count 4.33 M/mm3 (3.80-5.20); White Blood Cell Count 4.78 K/mm3 (4.00-11.30)
[2024-01-31 05:50] LABS: Albumin, Blood 3.1 g/dL (3.4-5.0); Albumin/Globulin Ratio 0.7 (0.8-1.8); Bilirubin, Total 0.4 mg/dL (0.1-1.0); Bun/Creatinine Ratio 24.2 (12.0-20.0); Calcium, Blood 8.9 mg/dL (8.5-10.1); Creatinine, Blood 0.62 mg/dL (0.40-1.00); Globulin, Blood 4.2 g/dL (2.2-4.0); Magnesium, Blood 2.1 mg/dL (1.6-2.4); Phosphorus, Blood 4.2 mg/dL (2.5-4.9); Potassium, Blood 4.1 mmol/L (3.5-5.5); Total Protein, Blood 7.3 g/dL (6.4-8.2)
[2024-01-31] MEDS ORDERED: Nicotine 21 MG PATCH TOP SCH (06:30)
[2024-01-31 07:19] VITALS: BP 95/59
--- NOTE | 2024-01-31 15:39 | NUR ---
Theraputic visit with pt she is needing support. She is having more abdominal tightness and pain. She is excited about future visitation with her child. She is very concerned about where she is going to live and getting support. 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
--- NOTE | 2024-01-31 18:22 | NUR ---
SHIFT SUMMARY PATIENT ALERT AND INTERACTIVE. PATIENT ABLE TO INDEPENDENTLY AMBULATE IN ROOM. PATIENT MEDICATED THROUGHOUT THE DAY FOR PAIN. EGG CRATE MATTRESS ADDED FOR COMFORT. PALLIATIVE CARE INVOLVED. DISCUSSED DISCHARGE PLAN AND NEEDING SAFE PLACE TO GO AND SAFE PLACE TO HAVE PAIN MEDICATIONS. FAMILY AND FRIENDS AT BEDSIDE THROUGHOUT THE DAY. PATIENT FOUND TO HAVE A PIPE ON HER BED AT ONE POINT. VISITORS TOOK PIPE. REINFORCED NO SMOKING OR FLAMMABLE ITEMS ALLOWED ON CAMPUS. FRIENDS AND PATIENT VERBALIZED UNDERSTANDING.
[2024-01-31 20:48] VITALS: BP 119/76
[2024-02-01 02:21] VITALS: BP 108/74
--- NOTE | 2024-02-01 05:11 | NUR ---
SHIFT SUMMARY: Pt is admitted for intractable abdominal pain and is a full code. Is alert and able to make needs known. ADLs have been 1p through the shift and had a shower with the aid of a friend per her request. Pain has been managed with PRN and routine pain management.
[2024-02-01 06:25] LABS: BASOPHILS ABSOLUTE AUTO 0.04 K/mm3 (0.00-0.23); BASOPHILS PERCENT AUTO 1 % (0-2); EOSINOPHILS ABSOLUTE AUTO 0.12 K/mm3 (0.00-0.68); EOSINOPHILS PERCENT AUTO 3 % (0-6); Hematocrit 36.8 % (33.0-51.0); Hemoglobin 11.8 g/dL (11.5-16.0); IMMATURE GRAN ABSOLUTE AUTO 0.01 K/mm3 (0.00-0.10); IMMATURE GRAN PERCENT AUTO 0 % (0-1); LYMPHOCYTES ABSOLUTE AUTO 1.56 K/mm3 (0.84-5.20); LYMPHOCYTES PERCENT AUTO 32 % (21-46); MONOCYTES ABSOLUTE AUTO 0.39 K/mm3 (0.16-1.47); MONOCYTES PERCENT AUTO 8 % (4-13); Mean Corpuscular HGB Conc 32.1 g/dL (31.5-36.5); Mean Corpuscular Volume 87 fL (80-100); Mean Platelet Volume 9.7 fL (9.1-12.4); NEUTROPHILS ABSOLUTE AUTO 2.71 K/mm3 (1.96-9.15); NEUTROPHILS PERCENT AUTO 56 % (41-73); Platelet Count 351 K/mm3 (150-400); RDW Coefficient Variation 12.6 % (11.7-14.2); RDW Standard Deviation 40.4 fL (35.1-46.3); Red Blood Cell Count 4.21 M/mm3 (3.80-5.20); White Blood Cell Count 4.83 K/mm3 (4.00-11.30)
[2024-02-01 06:48] LABS: Albumin, Blood 3.2 g/dL (3.4-5.0); Albumin/Globulin Ratio 0.7 (0.8-1.8); Bilirubin, Total 0.2 mg/dL (0.1-1.0); Bun/Creatinine Ratio 21.9 (12.0-20.0); Creatinine, Blood 0.64 mg/dL (0.40-1.00); Globulin, Blood 4.6 g/dL (2.2-4.0); Potassium, Blood 3.6 mmol/L (3.5-5.5); Total Protein, Blood 7.8 g/dL (6.4-8.2)
[2024-02-01 07:40] VITALS: BP 102/71
[2024-02-01] MEDS ORDERED: HYDROmorphone HCl/Pf 1MG SYR IV PRN (14:05)
[2024-02-01] MEDS ORDERED: Magnesium Citrate 300 ML BTL PO ONE (14:05)
[2024-02-01] MEDS ORDERED: Ketorolac Tromethamine 30mg Vial IV ONE (15:00)
[2024-02-01 15:50] VITALS: BP 107/74
--- NOTE | 2024-02-01 17:40 | NUR ---
SHIFT SUMMARY: PT A/O X4. PLEASANT AND COOPERATIVE WITH CARE. MEDICATED FOR PAIN SEVERAL TIMES THIS SHIFT WITH PRN AND SCHEDULED PAIN MEDS. PT C/O CONSTIPATION. SCHEDULED SENOKOT AND PRN MIRALAX INEFFECTIVE. SPOKE WITH DR. COFFEY WHO ORDERED HALF BOTTLE MAGNESIUM CITRATE. GIVEN THIS AFTERNOON WITH NO EFFECT OF THIS TIME. VISITORS IN ROOM THIS SHIFT. PT ASKING FOR SPRAY BOTTLE IN DRAWER. EXPLAINED TO PT D/T FINDINGS OF INAPPROPRIATE BELONGINGS YESTERDAY AND BOTTLE NOT BEING LABELED, STAFF WOULD NOT GIVE BOTTLE UNTIL DISCHARGE OR FAMILY COULD TAKE IT HOME. PT REFUSED ONE TIME DOSE TORADOL. STATES "IT DOES NOT WORK." CALL LIGHT IN REACH. BED IN LOWEST POSITION.
[2024-02-01 19:21] VITALS: BP 106/71
[2024-02-01] MEDS ORDERED: Naproxen 500 MG Tab PO PRN (20:00)
[2024-02-02 04:49] VITALS: BP 118/74
[2024-02-02 05:41] LABS: BASOPHILS ABSOLUTE AUTO 0.02 K/mm3 (0.00-0.23); BASOPHILS PERCENT AUTO 0 % (0-2); EOSINOPHILS PERCENT AUTO 2 % (0-6); Hematocrit 36.5 % (33.0-51.0); Hemoglobin 11.6 g/dL (11.5-16.0); IMMATURE GRAN ABSOLUTE AUTO 0.02 K/mm3 (0.00-0.10); IMMATURE GRAN PERCENT AUTO 0 % (0-1); LYMPHOCYTES ABSOLUTE AUTO 2.16 K/mm3 (0.84-5.20); LYMPHOCYTES PERCENT AUTO 38 % (21-46); MONOCYTES ABSOLUTE AUTO 0.53 K/mm3 (0.16-1.47); MONOCYTES PERCENT AUTO 9 % (4-13); Mean Corpuscular HGB 27.6 pg (26.0-34.0); Mean Corpuscular HGB Conc 31.8 g/dL (31.5-36.5); Mean Corpuscular Volume 87 fL (80-100); Mean Platelet Volume 9.9 fL (9.1-12.4); NEUTROPHILS ABSOLUTE AUTO 2.86 K/mm3 (1.96-9.15); NEUTROPHILS PERCENT AUTO 50 % (41-73); Platelet Count 362 K/mm3 (150-400); RDW Coefficient Variation 12.5 % (11.7-14.2); RDW Standard Deviation 39.6 fL (35.1-46.3); Red Blood Cell Count 4.21 M/mm3 (3.80-5.20); White Blood Cell Count 5.69 K/mm3 (4.00-11.30)
--- NOTE | 2024-02-02 05:50 | NUR ---
SHIFT SUMMARY. PATIENT IS A&OX4, PLEASANT WITH CARE, AND INDEPENDENT IN ROOM. PATIENT C/O PAIN X2 TONIGHT. PATIENT MEDICATED WITH SCHEDULED PAIN MEDS AND MEDICATED X1 WITH IV DILAUDID-SEE EMAR OR ORDERS. PATIENT REPORTS SHE HAS HAD CONSTIPATION-PATIENT REPORTS SHE HAD A SMALL BM TONIGHT. PATIENT TELLS THIS RN "SOMEONE STOOL MY DOG, AND IM TRYING TO GET IT FIGURED OUT" THIS RN OFFERED THERAPUETIC COMMUNICATION TO PATIENT AND LISTEN TO PATIENTS CONCERNS-AT END OF CONVERSATION PATIENT REPORTS THAT HER FRIEND HAS FOUND HER DOG. PATIENT IS ABLE TO MAKE HER NEEDS KNOWN. BED IS LOCKED IN THE LOWEST POSITION WITH CALL LIGHT IN REACH. CARE IS ONGOING.
[2024-02-02 06:05] LABS: Albumin/Globulin Ratio 0.7 (0.8-1.8); Bilirubin, Total 0.2 mg/dL (0.1-1.0); Bun/Creatinine Ratio 23.1 (12.0-20.0); Creatinine, Blood 0.65 mg/dL (0.40-1.00); Globulin, Blood 4.4 g/dL (2.2-4.0); Potassium, Blood 3.9 mmol/L (3.5-5.5); Total Protein, Blood 7.4 g/dL (6.4-8.2)
[2024-02-02 07:11] VITALS: BP 113/81
[2024-02-02] MEDS ORDERED: Naproxen 500 MG Tab PO PRN (11:20)
[2024-02-02] MEDS ORDERED: OxyCODONE 7.5 mg/Acetam 325 mg TABLET PO SCH (12:00)
[2024-02-02 15:06] VITALS: BP 108/80
[2024-02-02 16:20] LABS: BASOPHILS ABSOLUTE AUTO 0.03 K/mm3 (0.00-0.23); BASOPHILS PERCENT AUTO 1 % (0-2); EOSINOPHILS PERCENT AUTO 2 % (0-6); Hemoglobin 11.7 g/dL (11.5-16.0); IMMATURE GRAN ABSOLUTE AUTO 0.01 K/mm3 (0.00-0.10); IMMATURE GRAN PERCENT AUTO 0 % (0-1); LYMPHOCYTES ABSOLUTE AUTO 2.33 K/mm3 (0.84-5.20); LYMPHOCYTES PERCENT AUTO 39 % (21-46); MONOCYTES ABSOLUTE AUTO 0.44 K/mm3 (0.16-1.47); MONOCYTES PERCENT AUTO 7 % (4-13); Mean Corpuscular HGB 27.7 pg (26.0-34.0); Mean Corpuscular HGB Conc 31.6 g/dL (31.5-36.5); Mean Corpuscular Volume 88 fL (80-100); Mean Platelet Volume 9.9 fL (9.1-12.4); NEUTROPHILS PERCENT AUTO 52 % (41-73); Platelet Count 358 K/mm3 (150-400); RDW Coefficient Variation 12.4 % (11.7-14.2); RDW Standard Deviation 39.7 fL (35.1-46.3); Red Blood Cell Count 4.22 M/mm3 (3.80-5.20); White Blood Cell Count 6.01 K/mm3 (4.00-11.30)
[2024-02-02 16:36] LABS: International Normalized Ratio 0.95; Prothrombin Time Results 10.2 Sec (9.7-11.5)
--- NOTE | 2024-02-02 18:30 | NUR ---
SHIFT SUMMARY PATIENT ALERT AND INTERACTIVE. PATIENT CONTINUES TO HAVE ABDOMINAL AND BACK PAIN. ORAL PAIN MEDS INCREASED. PATIENT TO HAVE BIOPSY TOMORROW PRIOR TO DISCHARGE. PATIENT REQUESTING DOG STAY WITH HER. FRIEND TO STAY AND MANAGE DOG. PATIENT AND FRIEND REMINDED OF RULES OF NO FLAMMABLE ITEMS OR SMOKING PERMITTED IN THE HOSPITAL. MOTHER PRESENT ALSO. CONTINUE TO DISCUSS DISCHARGE WITH MOTHER AND PATIENT. PATIENT NEEDING SAFE DISCHARGE PLAN BECAUSE OF MEDICATIONS AND PROGRESSION OF ILLNESS.
[2024-02-02 19:26] VITALS: BP 116/83
--- NOTE | 2024-02-03 05:13 | NUR ---
SHIFT SUMMARY. PATIENT IS A&OX4. PATIENT HAD A FEMALE VISITOR IN AT BEGINNING OF SHIFT AND MALE FRIEND IN TO CARE FOR PATIENTS DOG-MALE FRIEND STAYED OVERNIGHT TO CARE FOR PATIENTS DOG. PATIENT RECEIVING SCHEDULED PAIN MEDICATIONS, PATIENT DID NOT CALL OR REQUEST BREAK THROUGH PAIN MEDICATIONS TONIGHT. PATIENT INDEPENDENT IN ROOM. NO ACUTE EVENTS NOTED OVERNIGHT. BED IS LOCKED IN THE LOWEST POSITION WITH CALL LIGHT IN REACH. CARE IS ONGOING.
[2024-02-03 05:48] LABS: BASOPHILS ABSOLUTE AUTO 0.03 K/mm3 (0.00-0.23); BASOPHILS PERCENT AUTO 1 % (0-2); EOSINOPHILS ABSOLUTE AUTO 0.09 K/mm3 (0.00-0.68); EOSINOPHILS PERCENT AUTO 2 % (0-6); Hematocrit 35.4 % (33.0-51.0); Hemoglobin 11.4 g/dL (11.5-16.0); IMMATURE GRAN ABSOLUTE AUTO 0.01 K/mm3 (0.00-0.10); IMMATURE GRAN PERCENT AUTO 0 % (0-1); LYMPHOCYTES ABSOLUTE AUTO 1.91 K/mm3 (0.84-5.20); LYMPHOCYTES PERCENT AUTO 35 % (21-46); MONOCYTES ABSOLUTE AUTO 0.46 K/mm3 (0.16-1.47); MONOCYTES PERCENT AUTO 9 % (4-13); Mean Corpuscular HGB Conc 32.2 g/dL (31.5-36.5); Mean Corpuscular Volume 87 fL (80-100); NEUTROPHILS PERCENT AUTO 54 % (41-73); Platelet Count 362 K/mm3 (150-400); RDW Coefficient Variation 12.4 % (11.7-14.2); RDW Standard Deviation 39.6 fL (35.1-46.3); Red Blood Cell Count 4.07 M/mm3 (3.80-5.20)
[2024-02-03 06:18] LABS: Albumin, Blood 3.2 g/dL (3.4-5.0); Albumin/Globulin Ratio 0.7 (0.8-1.8); Bilirubin, Total 0.2 mg/dL (0.1-1.0); Creatinine, Blood 0.74 mg/dL (0.40-1.00); Globulin, Blood 4.4 g/dL (2.2-4.0); Total Protein, Blood 7.6 g/dL (6.4-8.2)
[2024-02-03 07:11] VITALS: BP 114/81
--- NOTE | 2024-02-03 11:16 | NUR ---
PATIENT TRANSFERRED TO PCU BY HANNAH JORDAN CNA BY WHEELCHAIR ESCORT WITH ALL BELONGINGS AND CHART AFTER REPORT GIVEN TO LUIS CARLOS REDDING.
[2024-02-03] MEDS ORDERED: FT SENNA-S 8.61 EACH PO ×2 (12:32)
[2024-02-03] MEDS ORDERED: FAMO20 PO ×2 (12:32)
[2024-02-03] MEDS ORDERED: NAPR500 PO (12:35)
[2024-02-03] MEDS ORDERED: NICO21TP TOP ×2 (12:36)
[2024-02-03] MEDS ORDERED: ONDA4ODT MM ×2 (12:36)
[2024-02-03] MEDS ORDERED: OXYACE7.5T PO ×2 (12:37)
[2024-02-03] MEDS ORDERED: MIRALAX1714 PO ×2 (12:45)
--- NOTE | 2024-02-03 15:17 | NUR ---
DISCHARGE/SHIFT SUMMARY: A&Ox4. COOPERATIVE WITH CARE. CALLS APPROPRIATELY AND IS ABLE TO ADVOCATE NEEDS EFFECTIVELY. LYMPHNODE Bx COMPLETED TODAY AND PATIENT DISCHARGED SHORTLY THEREAFTER. LEFT FLOOR VIA WHEELCHAIR ESCORTED BY S/O AND THEIR DOG. HARD COPY FOR PAIN MEDS, ALL BELONGINGS AND DISCHARGE PACKET WITH PATIENT. MEDS FAXED TO [facility]. IV REMOVED BY GRACE NELSON CNA. FOLLOW-UP WITH PATIENT ESCORTED FROM FLOOR BY S/O WITH ALL BELONGINGS AND DISCHARGE PACKET. TRANSPORTATION PROVIDED BY PRIVATE OWNED VEHICLE.
== END 2024-02-03 13:30 | disposition home or self-care (01) | DRG 824 ==
LOC: ER 23:49 → MEDS 23:50 → ERHOLD 23:50 → MEDS 01-30 12:50 → ENPENDDIS 02-03 10:50 → MEDS 02-03 13:30
PROVIDERS: Emergency Medicine; Family Medicine; Hospitalist; ADMIT Family Medicine
PROC: 07B63ZX Excision of Left Axillary Lymphatic, Percutaneous Approach, Diagnostic (ICD-10-PCS; principal; 2024-02-03)
DX: C77.3 Secondary and unspecified malignant neoplasm of axilla and upper limb lymph nodes (principal); C78.00 Secondary malignant neoplasm of unspecified lung; C79.51 Secondary malignant neoplasm of bone; M84.58XA Pathological fracture in neoplastic disease, other specified site, initial encounter for fracture; Z59.00 Homelessness unspecified; G89.3 Neoplasm related pain (acute) (chronic); C50.919 Malignant neoplasm of unspecified site of unspecified female breast; D75.839 Thrombocytosis, unspecified; F15.10 Other stimulant abuse, uncomplicated; F12.10 Cannabis abuse, uncomplicated; F10.10 Alcohol abuse, uncomplicated; F17.210 Nicotine dependence, cigarettes, uncomplicated; R10.30 Lower abdominal pain, unspecified; Z88.8 Allergy status to other drugs, medicaments and biological substances; Z88.1 Allergy status to other antibiotic agents; Z79.891 Long term (current) use of opiate analgesic; Z87.820 Personal history of traumatic brain injury; Z98.890 Other specified postprocedural states
CPT/HCPCS: 36415; 38505; 76942; 80053; 83735; 84100; 85025; 85610; 85730; 88305; 88341; 88342; 88360; 96372; 96372-59; 96374; 96376; 99285; A9270; G0378; J1170; J1650

== ENCOUNTER 2024-02-12 03:42 | Emergency (ER) | payer OTHER ==
[~2024-02-12] VITALS: Ht 160 cm; Wt 65.8 kg
[~2024-02-12 03:42] MED LIST changes: +FAMO20 PO; +FT SENNA-S 8.61 EACH PO; +MIRALAX1714 PO; +NICO21TP TOP; +OXYACE7.5T PO
[2024-02-12] MEDS ORDERED: Ondansetron HCl 2 MG / ML 2ML Vial IV ONE (03:50)
[2024-02-12] MEDS ORDERED: NS 1,000 ML IV SCH (03:50)
[2024-02-12] MEDS ORDERED: Ketorolac Tromethamine 30mg Vial IV ONE (03:50)
[2024-02-12] MEDS ORDERED: Dicyclomine HCl 10 MG/ML 2ML Amp IM ONE (03:50)
[2024-02-12 04:00] LABS: BASOPHILS ABSOLUTE AUTO 0.05 K/mm3 (0.00-0.23); BASOPHILS PERCENT AUTO 1 % (0-2); EOSINOPHILS ABSOLUTE AUTO 0.05 K/mm3 (0.00-0.68); EOSINOPHILS PERCENT AUTO 1 % (0-6); Hematocrit 40.7 % (33.0-51.0); Hemoglobin 13.3 g/dL (11.5-16.0); IMMATURE GRAN ABSOLUTE AUTO 0.01 K/mm3 (0.00-0.10); IMMATURE GRAN PERCENT AUTO 0 % (0-1); LYMPHOCYTES PERCENT AUTO 30 % (21-46); MONOCYTES ABSOLUTE AUTO 0.44 K/mm3 (0.16-1.47); MONOCYTES PERCENT AUTO 6 % (4-13); Mean Corpuscular HGB 27.4 pg (26.0-34.0); Mean Corpuscular HGB Conc 32.7 g/dL (31.5-36.5); Mean Corpuscular Volume 84 fL (80-100); Mean Platelet Volume 9.7 fL (9.1-12.4); NEUTROPHILS ABSOLUTE AUTO 4.27 K/mm3 (1.96-9.15); NEUTROPHILS PERCENT AUTO 62 % (41-73); Platelet Count 407 K/mm3 (150-400); RDW Coefficient Variation 12.5 % (11.7-14.2); Red Blood Cell Count 4.86 M/mm3 (3.80-5.20); White Blood Cell Count 6.92 K/mm3 (4.00-11.30)
[2024-02-12 04:13] LABS: Albumin, Blood 3.7 g/dL (3.4-5.0); Albumin/Globulin Ratio 0.8 (0.8-1.8); Bilirubin, Total 0.5 mg/dL (0.1-1.0); Bun/Creatinine Ratio 20.2 (12.0-20.0); Calcium, Blood 10.1 mg/dL (8.5-10.1); Creatinine, Blood 0.69 mg/dL (0.40-1.00); Globulin, Blood 4.6 g/dL (2.2-4.0); Magnesium, Blood 2.1 mg/dL (1.6-2.4); Potassium, Blood 3.9 mmol/L (3.5-5.5); Total Protein, Blood 8.3 g/dL (6.4-8.2)
[2024-02-12] MEDS ORDERED: HYDROmorphone HCl/Pf 1MG SYR IV ONE ×2 (05:10→07:45)
[2024-02-12] MEDS ORDERED: OxyCODONE 7.5 mg/Acetam 325 mg TABLET PO ONE (11:25)
[2024-02-12 11:31] VITALS: BP 119/83
== END 2024-02-12 12:08 | disposition home or self-care (01) ==
LOC: ER 03:42
PROVIDERS: Student in an Organized Health Care Education/Training Program
DX: R10.31 Right lower quadrant pain (principal); R10.32 Left lower quadrant pain; R11.0 Nausea; C50.919 Malignant neoplasm of unspecified site of unspecified female breast; F17.210 Nicotine dependence, cigarettes, uncomplicated; Z79.899 Other long term (current) drug therapy; Z88.1 Allergy status to other antibiotic agents; Z88.8 Allergy status to other drugs, medicaments and biological substances
CPT/HCPCS: 74177; 80053; 83690; 83735; 85025; 93005; 93010; 96361; 96372-59; 96374-59; 96375; 96376; 99284-25; A9270; J0500; J1170; J1885; J2405; J7030; Q9967

== ENCOUNTER 2024-02-15 19:28 | Emergency (ER) | payer OTHER ==
[~2024-02-15] VITALS: Ht 160 cm; Wt 63.5 kg
[2024-02-15] MEDS ORDERED: Diazepam 5 MG / ML 2ML SYR IV ONE (19:55)
[2024-02-15] MEDS ORDERED: Lactated Ringer's 1,000 ML IV ONE (19:55)
[2024-02-15] MEDS ORDERED: Morphine Sulfate 4 MG/1 ML Injection IV ONE ×2 (19:55→23:25)
[2024-02-15 20:51] LABS: BASOPHILS ABSOLUTE AUTO 0.03 K/mm3 (0.00-0.23); BASOPHILS PERCENT AUTO 1 % (0-2); EOSINOPHILS ABSOLUTE AUTO 0.04 K/mm3 (0.00-0.68); EOSINOPHILS PERCENT AUTO 1 % (0-6); Hemoglobin 11.1 g/dL (11.5-16.0); IMMATURE GRAN ABSOLUTE AUTO 0.02 K/mm3 (0.00-0.10); IMMATURE GRAN PERCENT AUTO 0 % (0-1); LYMPHOCYTES ABSOLUTE AUTO 1.35 K/mm3 (0.84-5.20); LYMPHOCYTES PERCENT AUTO 21 % (21-46); MONOCYTES ABSOLUTE AUTO 0.52 K/mm3 (0.16-1.47); MONOCYTES PERCENT AUTO 8 % (4-13); Mean Corpuscular HGB 27.3 pg (26.0-34.0); Mean Corpuscular HGB Conc 31.7 g/dL (31.5-36.5); Mean Corpuscular Volume 86 fL (80-100); Mean Platelet Volume 10.1 fL (9.1-12.4); NEUTROPHILS ABSOLUTE AUTO 4.39 K/mm3 (1.96-9.15); NEUTROPHILS PERCENT AUTO 69 % (41-73); Platelet Count 353 K/mm3 (150-400); RDW Coefficient Variation 12.9 % (11.7-14.2); RDW Standard Deviation 40.3 fL (35.1-46.3); Red Blood Cell Count 4.06 M/mm3 (3.80-5.20); White Blood Cell Count 6.35 K/mm3 (4.00-11.30)
[2024-02-15 21:07] LABS: International Normalized Ratio 0.96; Prothrombin Time Results 10.3 Sec (9.7-11.5)
[2024-02-15 21:11] LABS: Albumin, Blood 3.4 g/dL (3.4-5.0); Albumin/Globulin Ratio 0.9 (0.8-1.8); Bilirubin, Total 0.3 mg/dL (0.1-1.0); Bun/Creatinine Ratio 28.9 (12.0-20.0); Calcium, Blood 8.4 mg/dL (8.5-10.1); Creatinine, Blood 0.69 mg/dL (0.40-1.00); Globulin, Blood 3.9 g/dL (2.2-4.0); Magnesium, Blood 2.1 mg/dL (1.6-2.4); Potassium, Blood 3.7 mmol/L (3.5-5.5); Total Protein, Blood 7.3 g/dL (6.4-8.2)
[2024-02-15 21:42] LABS: Influenza A, PCR NEGATIVE (NEGATIVE); Influenza B, PCR NEGATIVE (NEGATIVE); Resp Syncytial Virus, PCR NEGATIVE (NEGATIVE); SARS-Cov-2 (COVID-19) PCR, MMC NEGATIVE (NEGATIVE)
[2024-02-16] MEDS ORDERED: Morphine Sulfate 4 MG/1 ML Injection IV ONE (01:55)
[2024-02-16 02:39] VITALS: BP 108/76
== END 2024-02-16 02:40 | disposition short-term general hospital (02) ==
LOC: ER 19:28
PROVIDERS: Student in an Organized Health Care Education/Training Program
DX: S22.079A Unspecified fracture of T9-T10 vertebra, initial encounter for closed fracture (principal); S32.059A Unspecified fracture of fifth lumbar vertebra, initial encounter for closed fracture; S12.500A Unspecified displaced fracture of sixth cervical vertebra, initial encounter for closed fracture; C50.919 Malignant neoplasm of unspecified site of unspecified female breast; C79.51 Secondary malignant neoplasm of bone; R29.818 Other symptoms and signs involving the nervous system; D64.9 Anemia, unspecified; F17.210 Nicotine dependence, cigarettes, uncomplicated; Z79.899 Other long term (current) drug therapy; Z88.1 Allergy status to other antibiotic agents; Z88.6 Allergy status to analgesic agent
CPT/HCPCS: 0241U; 72125; 72128; 72131; 80053; 83735; 85025; 85610; 85730; 86850; 86900; 86901; 96361; 96374; 96375; 96376; 99285-25; J2270; J3360; J7120

== ENCOUNTER 2024-06-20 08:37 | Emergency (ER) | payer OTHER ==
[~2024-06-20] VITALS: Ht 157.5 cm; Wt 59.0 kg
[2024-06-20 09:32] VITALS: BP 135/98
== END 2024-06-20 11:06 | disposition home or self-care (01) ==
LOC: ER 08:37
DX: Z18.10 Retained metal fragments, unspecified (principal); F17.210 Nicotine dependence, cigarettes, uncomplicated; Z79.899 Other long term (current) drug therapy; Z88.1 Allergy status to other antibiotic agents
CPT/HCPCS: 70140; 99283-25

== ENCOUNTER 2024-07-09 17:15 | Emergency (ER) | payer OTHER ==
[~2024-07-09] VITALS: Ht 157.5 cm; Wt 52.2 kg
[2024-07-09 17:50] VITALS: BP 122/98
[2024-07-09 18:21] LABS: BASOPHILS ABSOLUTE AUTO 0.04 K/mm3 (0.00-0.23); BASOPHILS PERCENT AUTO 1 % (0-2); EOSINOPHILS ABSOLUTE AUTO 0.02 K/mm3 (0.00-0.68); EOSINOPHILS PERCENT AUTO 1 % (0-6); Hematocrit 24.8 % (33.0-51.0); Hemoglobin 8.6 g/dL (11.5-16.0); IMMATURE GRAN ABSOLUTE AUTO 0.03 K/mm3 (0.00-0.10); IMMATURE GRAN PERCENT AUTO 1 % (0-1); LYMPHOCYTES PERCENT AUTO 17 % (21-46); MONOCYTES ABSOLUTE AUTO 0.28 K/mm3 (0.16-1.47); MONOCYTES PERCENT AUTO 7 % (4-13); Mean Corpuscular HGB 31.7 pg (26.0-34.0); Mean Corpuscular HGB Conc 34.7 g/dL (31.5-36.5); Mean Corpuscular Volume 92 fL (80-100); Mean Platelet Volume 9.6 fL (9.1-12.4); NEUTROPHILS ABSOLUTE AUTO 3.09 K/mm3 (1.96-9.15); NEUTROPHILS PERCENT AUTO 74 % (41-73); Platelet Count 221 K/mm3 (150-400); RDW Coefficient Variation 13.3 % (11.7-14.2); RDW Standard Deviation 43.8 fL (35.1-46.3); Red Blood Cell Count 2.71 M/mm3 (3.80-5.20); White Blood Cell Count 4.16 K/mm3 (4.00-11.30)
[2024-07-09 18:41] LABS: Albumin, Blood 3.2 g/dL (3.4-5.0); Albumin/Globulin Ratio 0.6 (0.8-1.8); Bilirubin, Total 0.5 mg/dL (0.1-1.0); Bun/Creatinine Ratio 15.8 (12.0-20.0); Calcium, Blood 9.3 mg/dL (8.5-10.1); Creatinine, Blood 1.52 mg/dL (0.40-1.00); Globulin, Blood 5.5 g/dL (2.2-4.0); Potassium, Blood 2.9 mmol/L (3.5-5.5); Total Protein, Blood 8.7 g/dL (6.4-8.2)
[2024-07-09 19:00] LABS: Influenza A, PCR NEGATIVE (NEGATIVE); Influenza B, PCR NEGATIVE (NEGATIVE); Resp Syncytial Virus, PCR NEGATIVE (NEGATIVE); SARS-Cov-2 (COVID-19) PCR, MMC NEGATIVE (NEGATIVE)
== END 2024-07-09 23:16 | disposition left against medical advice (07) ==
LOC: ER 17:15
PROVIDERS: Student in an Organized Health Care Education/Training Program
DX: R07.9 Chest pain, unspecified (principal); R05.9 Cough, unspecified; Z53.29 Procedure and treatment not carried out because of patient's decision for other reasons
CPT/HCPCS: 0241U; 71260; 80053; 83690; 85025; 93005; 93010; 99283-25; Q9967

== ENCOUNTER 2024-08-09 21:07 | Emergency (ER) | payer OTHER ==
[~2024-08-09] VITALS: Ht 157.5 cm; Wt 52.2 kg
[2024-08-09 21:48] LABS: BASOPHILS ABSOLUTE AUTO 0.08 K/mm3 (0.00-0.23); BASOPHILS PERCENT AUTO 2 % (0-2); EOSINOPHILS ABSOLUTE AUTO 0.07 K/mm3 (0.00-0.68); EOSINOPHILS PERCENT AUTO 2 % (0-6); Hematocrit 26.4 % (33.0-51.0); Hemoglobin 8.9 g/dL (11.5-16.0); IMMATURE GRAN ABSOLUTE AUTO 0.01 K/mm3 (0.00-0.10); IMMATURE GRAN PERCENT AUTO 0 % (0-1); LYMPHOCYTES ABSOLUTE AUTO 1.27 K/mm3 (0.84-5.20); LYMPHOCYTES PERCENT AUTO 27 % (21-46); MONOCYTES ABSOLUTE AUTO 0.49 K/mm3 (0.16-1.47); MONOCYTES PERCENT AUTO 11 % (4-13); Mean Corpuscular HGB 32.6 pg (26.0-34.0); Mean Corpuscular HGB Conc 33.7 g/dL (31.5-36.5); Mean Corpuscular Volume 97 fL (80-100); Mean Platelet Volume 8.9 fL (9.1-12.4); NEUTROPHILS ABSOLUTE AUTO 2.74 K/mm3 (1.96-9.15); NEUTROPHILS PERCENT AUTO 59 % (41-73); Platelet Count 332 K/mm3 (150-400); RDW Coefficient Variation 16.9 % (11.7-14.2); RDW Standard Deviation 59.3 fL (35.1-46.3); Red Blood Cell Count 2.73 M/mm3 (3.80-5.20); White Blood Cell Count 4.66 K/mm3 (4.00-11.30)
[2024-08-09] MEDS ORDERED: Methocarbamol 500 MG Tab PO ONE (21:50)
[2024-08-09 22:13] LABS: Alanine Aminotransfer (ALT/SGP 17 U/L (12-78); Albumin, Blood 3.7 g/dL (3.4-5.0); Albumin/Globulin Ratio 0.8 (0.8-1.8); Alk Phos 101 U/L (50-136); Anion Gap 10 mmol/L (3-11); Aspartate Aminotrans (AST/SGOT 16 U/L (12-37); Beta HCG, Quantitative, Serum <1 mIU/mL (0-3); Bilirubin, Total 0.3 mg/dL (0.1-1.0); Blood Urea Nitrogen 18 mg/dL (8-24); Bun/Creatinine Ratio 20.3 (12.0-20.0); CO2, Blood 26 mmol/L (21-32); Chloride, Blood 108 mmol/L (98-108); Creatinine, Blood 0.89 mg/dL (0.40-1.00); Globulin, Blood 4.5 g/dL (2.2-4.0); Glomerular Filtration Rate 84 (60-); Glucose, Blood 110 mg/dL (70-99); Potassium, Blood 3.6 mmol/L (3.5-5.5); Sodium, Blood 140 mmol/L (136-145); Total Protein, Blood 8.2 g/dL (6.4-8.2)
[2024-08-09] MEDS ORDERED: Robaxin750 MG PO (23:44)
[2024-08-10] VITALS: BP 119/80
== END 2024-08-10 00:01 | disposition home or self-care (01) ==
LOC: ER 21:07
PROVIDERS: Student in an Organized Health Care Education/Training Program
DX: M54.2 Cervicalgia (principal); V49.40XA Driver injured in collision with unspecified motor vehicles in traffic accident, initial encounter; M25.559 Pain in unspecified hip; Z88.6 Allergy status to analgesic agent; Z88.1 Allergy status to other antibiotic agents; Z88.3 Allergy status to other anti-infective agents; Z88.8 Allergy status to other drugs, medicaments and biological substances; Z88.9 Allergy status to unspecified drugs, medicaments and biological substances
CPT/HCPCS: 70450; 72125; 80053; 84702; 85025; 99284-25; A9270